=== PATIENT | female | born 1995 | race Hispanic/Latino ===

== ENCOUNTER 2020-12-05 15:59 | Outpatient (CLI) | payer BC | END 2020-12-05 16:00 | disposition home or self-care (01) | LOC: CSHLAB 15:59 | PROVIDERS: ATTEND Obstetrics & Gynecology | DX: Z01.812 Encounter for preprocedural laboratory examination (principal); Z20.822 Contact with and (suspected) exposure to COVID-19; Z97.5 Presence of (intrauterine) contraceptive device | CPT/HCPCS: 84703; 85027; 86850; 86900; 86901; 87635; U0003; U0005 ==

== ENCOUNTER 2020-12-10 08:43 | Day surgery (SDC) | payer BC ==
[2020-12-05 17:32] LABS: Hemoglobin 10.5 g/dL (12.0-15.5); Mean Corpuscular HGB CONC 31.3 g/dL (32.0-36.0); Mean Corpuscular Hemoglobin 26.9 pg (27.0-33.0); Mean Corpuscular Volume 85.7 fl (81.6-98.3); Mean Platelet Volume 11.9 fl (7.4-10.4); Platelet Count 318 10x3/uL (150-450); RBC Distribution Width 13.4 % (11.5-14.5); Red Blood Cell (RBC) Count 3.91 10x6/uL (3.90-5.03); White Blood Cell (WBC) Count 6.3 10x3/uL (3.5-10.5)
[2020-12-05 17:48] LABS: BHCG - Serum Negative (NEGATIVE)
[2020-12-05 17:49] LABS: Pregs Control Background? CLEAR/WHITE (CLR/WHITE); Pregs Control Bar Appear? YES (CONTROL BAR)
[2020-12-06 01:53] LABS: SARS-CoV-2 PCR by NAA Not Detected (NotDetected)
[2020-12-09 12:27] VITALS: BMI 20.3
[~2020-12-10 08:43] MED LIST: Famotidine/PF 20 mg/2ml Vial ONE; Gabapentin 300 MG CAP ONE
[2020-12-10] MEDS ORDERED: CeleCOXIB 100 MG CAP ONE (08:46)
[2020-12-10] MEDS ORDERED: Lidocaine 1% MPF 2 ML VIAL ONE (08:48)
[2020-12-10] MEDS ORDERED: Rocuronium Bromide 10 MG/ML (10ML VIAL) ONE (09:42)
[2020-12-10] MEDS ORDERED: PROPOFOL 20 ML ONE (09:42)
[2020-12-10] MEDS ORDERED: Dexamethasone 20 MG/5 ML VIAL ONE (09:42)
[2020-12-10] MEDS ORDERED: Ondansetron PF 4 MG/2 ML Vial ONE (09:42)
[2020-12-10] MEDS ORDERED: Midazolam HCl 2 mg/2 ml Vial ONE (09:42)
[2020-12-10] MEDS ORDERED: Glycopyrrolate 0.2 MG/ML 5 ML SYRINGE ONE (09:42)
[2020-12-10] MEDS ORDERED: Ketorolac Tromethamine 15 MG/ML VIAL ONE (09:42)
[2020-12-10] MEDS ORDERED: Fentanyl 100 MCG/2 ML VIAL ONE (09:42)
[2020-12-10] MEDS ORDERED: Lidocaine 1% PF 5 ML VIAL ONE (09:43)
[2020-12-10] MEDS ORDERED: Bupivacaine PF 0.5% 30 ML VIAL ONE (10:03)
[2020-12-10] MEDS ORDERED: EPINEPHrine 1 MG/10 ML Abboject SYRINGE ONE (11:50)
== END 2020-12-10 11:35 | disposition home or self-care (01) ==
LOC: CSHSDC 08:43
PROVIDERS: ATTEND Obstetrics & Gynecology
PROC: 0UPD4HZ Removal of Contraceptive Device from Uterus and Cervix, Percutaneous Endoscopic Approach (ICD-10-PCS; principal; 2020-12-10)
PROC: 0UJD8ZZ Inspection of Uterus and Cervix, Via Natural or Artificial Opening Endoscopic (ICD-10-PCS; principal; 2020-12-10)
DX: T83.32XA Displacement of intrauterine contraceptive device, initial encounter (principal); Z79.899 Other long term (current) drug therapy
CPT/HCPCS: 84703; 85027; 86850; 86900; 86901; 87635; J0171; J0690; J1100; J1885; J2250; J2405; J2704; J3010; S0020; S0028; U0003; U0005